=== PATIENT | male | born 1955 | race Caucasian/White ===

== ENCOUNTER 2022-03-20 04:01 | Day surgery (SDC) | payer OTHER ==
[2022-03-16 15:28] VITALS: BMI 35.9
[2022-03-20] MEDS ORDERED: LACTATED RINGERS SOLUTION 1,000 ML IV SCH (07:15)
[2022-03-20] MEDS ORDERED: MIDAZOLAM HCL 2 MG/2 ML SINGLE DOSE VIAL ONE ×2 (09:41→10:43)
[2022-03-20] MEDS ORDERED: PROPOFOL 20 ML ONE ×3 (09:41→10:43)
[2022-03-20] MEDS ORDERED: ONDANSETRON 4 MG/2 ML VIAL ONE ×2 (10:16→10:43)
[2022-03-20] MEDS ORDERED: LIDOCAINE HCL 2% 100 MG/5 ML DISP.SYRIN ONE (10:43)
[2022-03-20] MEDS ORDERED: ePHEDrine SULFATE 50 MG/1 ML AMPULE ONE (10:45)
[2022-03-20 13:57] VITALS: RESP 18; TEMP 97
[2022-03-20 14:40] VITALS: BP 149/73; PULSE 60
== END 2022-03-20 14:46 | disposition home or self-care (01) ==
LOC: JASU-SURG 04:01
PROVIDERS: ATTEND Urology
PROC: 0T9680Z Drainage of Right Ureter with Drainage Device, Via Natural or Artificial Opening Endoscopic (ICD-10-PCS; 2022-03-20)
PROC: 0TF4XZZ Fragmentation in Left Kidney Pelvis, External Approach (ICD-10-PCS; principal; 2022-03-20 09:30)
PROC: 0T768DZ Dilation of Right Ureter with Intraluminal Device, Via Natural or Artificial Opening Endoscopic (ICD-10-PCS; 2022-03-20 09:30)
DX: N20.0 Calculus of kidney (principal)
CPT/HCPCS: 76000-TC-FY; 82962; 94760; C1758; C2617

== ENCOUNTER 2022-05-15 04:31 | Day surgery (SDC) | payer OTHER ==
[2022-05-11 16:09] VITALS: BMI 33.7
[2022-05-15] MEDS ORDERED: FENTANYL CITRATE/PF 50 MCG/ML VIAL ONE ×4 (09:15→12:31)
[2022-05-15] MEDS ORDERED: DEXAMETHASONE SOD PHOSPHATE 4 MG/1 ML VIAL ONE (09:15)
[2022-05-15] MEDS ORDERED: LIDOCAINE HCL/PF 2% SDV 5ML VIAL ONE (09:15)
[2022-05-15] MEDS ORDERED: ONDANSETRON 4 MG/2 ML VIAL ONE (09:15)
[2022-05-15] MEDS ORDERED: MIDAZOLAM HCL 2 MG/2 ML SINGLE DOSE VIAL ONE (09:16)
[2022-05-15] MEDS ORDERED: PROPOFOL 40 ML ONE (09:16)
[2022-05-15] MEDS ORDERED: ceFAZolin SODIUM 1 GM VIAL IVPB ONE (09:45)
[2022-05-15] MEDS ORDERED: GENTAMICIN 80MG PREMIX BAG IVPB ONE (09:45)
[2022-05-15] MEDS ORDERED: ACETAMINOPHEN 1000 MG/100 ML BAG IVPB ONE ×2 (11:31→11:51)
[2022-05-15] MEDS ORDERED: ONDANSETRON 4 MG/2 ML VIAL IVPUSH PRN (11:31)
[2022-05-15] MEDS ORDERED: LACTATED RINGERS SOLUTION 1,000 ML IV SCH (11:45)
[2022-05-15] MEDS ORDERED: ACETAMINOPHEN INJECTION 100 ML IVPB ONE (11:47)
[2022-05-15 13:47] VITALS: RESP 18
[2022-05-15 14:26] VITALS: BP 130/74; PULSE 69; TEMP 97.6
== END 2022-05-15 14:34 | disposition home or self-care (01) ==
LOC: JASU-SURG 04:31
PROVIDERS: ATTEND Urology
PROC: 0TC48ZZ Extirpation of Matter from Left Kidney Pelvis, Via Natural or Artificial Opening Endoscopic (ICD-10-PCS; principal; 2022-05-15 09:00)
PROC: 0T778DZ Dilation of Left Ureter with Intraluminal Device, Via Natural or Artificial Opening Endoscopic (ICD-10-PCS; 2022-05-15 09:00)
PROC: BT1FYZZ Fluoroscopy of Left Kidney, Ureter and Bladder using Other Contrast (ICD-10-PCS; 2022-05-15 09:00)
DX: N20.0 Calculus of kidney (principal)
CPT/HCPCS: 76000-TC-FY; 82962; 94760; C1758; C2617

== ENCOUNTER 2022-08-07 04:08 | Day surgery (SDC) | payer OTHER ==
[2022-08-03 09:26] VITALS: BMI 33.7
[2022-08-07] MEDS ORDERED: ONDANSETRON 4 MG/2 ML VIAL ONE (10:57)
[2022-08-07] MEDS ORDERED: MIDAZOLAM HCL 2 MG/2 ML SINGLE DOSE VIAL ONE (10:57)
[2022-08-07] MEDS ORDERED: SEVOFLURANE 250 ML BTL ONE (11:17)
[2022-08-07 11:57] VITALS: RESP 16
[2022-08-07 12:53] VITALS: BP 144/79; PULSE 61; TEMP 96.9
== END 2022-08-07 13:00 | disposition home or self-care (01) ==
LOC: JASU-SURG 04:08
PROVIDERS: ATTEND Urology
PROC: 0TF4XZZ Fragmentation in Left Kidney Pelvis, External Approach (ICD-10-PCS; principal; 2022-08-07 10:30)
DX: N20.0 Calculus of kidney (principal)

== ENCOUNTER 2022-10-16 03:44 | Day surgery (SDC) | payer OTHER ==
[2022-10-12 09:46] VITALS: BMI 33.5
[2022-10-16 06:55] VITALS: RESP 20; TEMP 97.3
[2022-10-16] MEDS ORDERED: KETOROLAC TROMETHAMINE 30 MG/1 ML VIAL ONE (08:04)
[2022-10-16] MEDS ORDERED: ONDANSETRON 4 MG/2 ML VIAL ONE (08:04)
[2022-10-16] MEDS ORDERED: MIDAZOLAM HCL 2 MG/2 ML SINGLE DOSE VIAL ONE (08:04)
[2022-10-16 13:01] VITALS: BP 135/75; PULSE 61
== END 2022-10-16 13:05 | disposition home or self-care (01) ==
LOC: JASU-SURG 03:44
PROVIDERS: ATTEND Urology
PROC: 0TF4XZZ Fragmentation in Left Kidney Pelvis, External Approach (ICD-10-PCS; principal; 2022-10-16 08:30)
DX: N20.0 Calculus of kidney (principal)
CPT/HCPCS: 82962

== ENCOUNTER 2023-10-09 04:38 | Day surgery (SDC) | payer OTHER ==
[2023-10-05 11:13] VITALS: BMI 32.3
[2023-10-09 08:54] VITALS: RESP 18; TEMP 98.4
[2023-10-09 09:41] VITALS: BP 143/80; PULSE 47
== END 2023-10-09 09:41 | disposition home or self-care (01) ==
LOC: JASU-ENDO 04:38
PROVIDERS: ATTEND Internal Medicine Gastroenterology
PROC: 0DBL8ZX Excision of Transverse Colon, Via Natural or Artificial Opening Endoscopic, Diagnostic (ICD-10-PCS; 2023-10-09)
PROC: 0DBN8ZX Excision of Sigmoid Colon, Via Natural or Artificial Opening Endoscopic, Diagnostic (ICD-10-PCS; 2023-10-09)
PROC: 0DBP8ZX Excision of Rectum, Via Natural or Artificial Opening Endoscopic, Diagnostic (ICD-10-PCS; 2023-10-09)
PROC: 0DBM8ZX Excision of Descending Colon, Via Natural or Artificial Opening Endoscopic, Diagnostic (ICD-10-PCS; principal; 2023-10-09 08:00)
DX: Z12.11 Encounter for screening for malignant neoplasm of colon (principal); D12.3 Benign neoplasm of transverse colon; D12.4 Benign neoplasm of descending colon; D12.5 Benign neoplasm of sigmoid colon; D12.8 Benign neoplasm of rectum; K64.8 Other hemorrhoids; Z86.010 Personal history of colon polyps; I10 Essential (primary) hypertension; E11.9 Type 2 diabetes mellitus without complications; Z79.84 Long term (current) use of oral hypoglycemic drugs
CPT/HCPCS: 82962; 88305-TC

== ENCOUNTER 2024-12-08 06:33 | Day surgery (SDC) | payer OTHER ==
[2024-12-02 12:25] VITALS: BMI 28.7
[2024-12-08 09:53] VITALS: RESP 20
[2024-12-08] MEDS ORDERED: MIDAZOLAM HCL 2 MG/2 ML SINGLE DOSE VIAL ONE (11:23)
[2024-12-08 12:35] VITALS: BP 132/63; PULSE 58; TEMP 97.3
== END 2024-12-08 12:30 | disposition home or self-care (01) ==
LOC: JASU-SURG 06:33
PROVIDERS: ATTEND Urology
PROC: 0TF4XZZ Fragmentation in Left Kidney Pelvis, External Approach (ICD-10-PCS; principal; 2024-12-08 11:26)
DX: N20.0 Calculus of kidney (principal)